=== PATIENT | male | born 2000 | race Caucasian/White ===

== ENCOUNTER 2020-08-13 00:16 | Emergency (ER) | payer OTHER ==
[~2020-08-13] VITALS: Ht 182.9 cm; Wt 98.9 kg
[2020-08-13 00:19] VITALS: BP 147/90
--- NOTE | 2020-08-13 00:22 | NUR ---
TO LOBBY A/W BED AMBULATORY
--- NOTE | 2020-08-13 02:45 | NUR ---
PT AMBULATED TO BED #12
--- NOTE | 2020-08-13 02:45 | NUR ---
SEE COMPLETE ASSESSMENT
--- NOTE | 2020-08-13 03:14 | NUR ---
LAB AT BEDSIDE.
--- NOTE | 2020-08-13 03:25 | NUR ---
RAD AT BEDSIDE
[2020-08-13 03:28] LABS: BASOPHILS % (AUTO) 0.5 % (0.0-2.0); EOSINOPHILS # (AUTO) 0.3 K/uL (0-0.4); EOSINOPHILS % (AUTO) 3.8 % (0.0-4.0); HEMATOCRIT 47.7 % (36-52); HEMOGLOBIN 16.3 g/dL (12.0-18.0); LYMPHOCYTES # (AUTO) 2.3 K/uL (2.0-11.5); LYMPHOCYTES % (AUTO) 29.8 % (20.5-51.1); MEAN CORPUSCULAR HEMOGLOBIN 30 pg (27-31); MEAN CORPUSCULAR HGB CONC 34 g/dL (33-37); MEAN CORPUSCULAR VOLUME 86.1 fL (80-94); MONOCYTES # (AUTO) 0.7 K/uL (0.8-1.0); MONOCYTES % (AUTO) 9.1 % (1.7-9.3); NEUTROPHILS # (AUTO) 4.3 K/uL (1.8-7.7); NEUTROPHILS % (AUTO) 56.8 % (42.2-75.2); PLATELET COUNT (AUTO) 244 K/uL (140-450); RED BLOOD CELL COUNT(AUTO) 5.54 MIL/uL (4.20-6.10); RED CELL DISTRIBUTION WIDTH 12.5 % (11.6-13.7); WHITE BLOOD COUNT (AUTO) 7.5 K/uL (4.5-11.0)
[2020-08-13 03:52] LABS: ANION GAP 13.4 (8-16); CARBON DIOXIDE 28.4 mmol/L (21-32); CREATININE 0.9 mg/dL (0.6-1.3); POTASSIUM 3.8 mmol/L (3.5-5.1)
[2020-08-13 04:53] VITALS: BP 125/68
--- NOTE | 2020-08-13 04:53 | NUR ---
Patient discharged with v/s stable. Written and verbal after care instructions given and explained. Patient verbalized understanding. Ambulatory with steady gait. All questions addressed prior to discharge. Advised to follow up with PMD.
== END 2020-08-13 04:53 | disposition home or self-care (01) ==
LOC: MED 00:16
DX: R07.9 Chest pain, unspecified (principal)
CPT/HCPCS: 36415; 71045; 80048; 84484; 85025; 93005; 99285

== ENCOUNTER 2023-02-10 21:35 | Emergency (ER) | payer OTHER ==
[~2023-02-10] VITALS: Ht 182.9 cm; Wt 97.5 kg
[2023-02-10 22:08] VITALS: BP 135/73
--- NOTE | 2023-02-10 22:14 | NUR ---
PT TO BED #9
[2023-02-10] MEDS ORDERED: NACL 0.9% 1,000 ML IV ONE (23:40)
[2023-02-10] MEDS ORDERED: ONDANSETRON 4 MG/2 ML VIAL IVP ONE (23:40)
[2023-02-10] MEDS ORDERED: KETOROLAC 30 MG/ML VIAL IVP ONE (23:40)
[2023-02-10 23:57] LABS: BASOPHILS % (AUTO) 0.4 % (0.0-2.0); EOSINOPHILS # (AUTO) 0.2 K/uL (0-0.4); EOSINOPHILS % (AUTO) 1.7 % (0.0-4.0); HEMATOCRIT 46.4 % (36-52); HEMOGLOBIN 15.9 g/dL (12.0-18.0); LYMPHOCYTES # (AUTO) 0.9 K/uL (2.0-11.5); MEAN CORPUSCULAR HEMOGLOBIN 30 pg (27-31); MEAN CORPUSCULAR HGB CONC 34 g/dL (33-37); MEAN CORPUSCULAR VOLUME 87.2 fL (80-94); MONOCYTES # (AUTO) 0.8 K/uL (0.8-1.0); NEUTROPHILS # (AUTO) 7.4 K/uL (1.8-7.7); NEUTROPHILS % (AUTO) 78.9 % (42.2-75.2); PLATELET COUNT (AUTO) 232 K/uL (140-450); RED BLOOD CELL COUNT(AUTO) 5.32 MIL/uL (4.20-6.10); WHITE BLOOD COUNT (AUTO) 9.4 K/uL (4.8-10.8)
--- NOTE | 2023-02-11 | NUR ---
Carrie noe in [facility] - 02/11/23 at 0[email or web address]EN BY [address] [email or web address]
--- NOTE | 2023-02-11 00:04 | NUR ---
Urine collected and sent to lab
[2023-02-11 00:06] LABS: APPEARANCE,URINE CLEAR (CLEAR); BILIRUBIN,URINE NEGATIVE (NEGATIVE); BLOOD, URINE NEGATIVE (NEGATIVE); COLOR,URINE YELLOW (YELLOW); LEUKOCYTE ESTERASE ,URINE NEGATIVE (NEGATIVE); NITRITE, URINE NEGATIVE (NEGATIVE); UGLUCOSE NEGATIVE (NEGATIVE)
[2023-02-11 00:13] LABS: ALBUMIN 4.2 g/dL (3.4-5.0); ANION GAP 15.1 (8-16); CARBON DIOXIDE 25.3 mmol/L (21-32); CREATININE 0.9 mg/dL (0.6-1.3); POTASSIUM 3.4 mmol/L (3.5-5.1); TOTAL BILIRUBIN 0.6 mg/dL (0.0-1.0)
[2023-02-11] MEDS ORDERED: CEPH-588 PO (00:40)
[2023-02-11] MEDS ORDERED: predniSONE 20 MG TAB PO ONE (00:40)
[2023-02-11] MEDS ORDERED: PRED20TA5 PO (00:40)
[2023-02-11 01:00] VITALS: BP 127/84
== END 2023-02-11 01:00 | disposition home or self-care (01) ==
LOC: MED 21:35
DX: L30.9 Dermatitis, unspecified (principal); R21 Rash and other nonspecific skin eruption; R19.7 Diarrhea, unspecified; Z79.899 Other long term (current) drug therapy
CPT/HCPCS: 36415; 80053; 81003; 83690; 85025; 96361; 96374; 96375; 99284; J1885; J2405; J7030; J7512